=== PATIENT | female | born 1955 | race Caucasian/White ===

== ENCOUNTER 2016-04-15 13:42 | Emergency (ER) | payer MEDICARE, OTHER ==
[2016-04-15] MEDS ORDERED: ALBUTEROL/IPRATROPIUM 2.5/0.5 MG 3 ML/EACH DOSE ONE (14:45)
[2016-04-15] MEDS ORDERED: ASPIRIN CHEWTAB 81 MG TABLET ONE ×2 (14:55→15:04)
[2016-04-15] MEDS ORDERED: DEXAMETHASONE SOD PHOS 10 MG/1 ML VIAL ONE (14:55)
[2016-04-15] MEDS ORDERED: FUROSEMIDE 40 MG/4 ML VIAL ONE ×2 (14:56→14:57)
[2016-04-15 15:16] LABS: ABSOLUTE NEUTROPHIL COUNT 11.1 K/mm3 (1.8-7.7); BASO # 0.1 K/mm3 (0.0-0.2); BASO % 0.4 % (0.2-1.0); EOS # 0.1 (0.0-0.5); EOS % 0.4 % (0.9-2.9); HEMATOCRIT 43.5 % (37.0-47.0); HEMOGLOBIN 12.9 gm/l (12.0-16.0); IMM NEUT # 0.1 K/mm3 (0-0.2); IMM NEUT% 0.6 % (0-1); LYMPH % 7.9 % (15-45); MEAN CELL VOLUME 88.8 fl (81.0-99.0); MEAN CORPUSCULAR HEMOGLOBIN 26.3 pg (27.0-31.0); MEAN CORPUSCULAR HGB CONC 29.7 g/dl (33.0-37.0); MEAN PLATELET VOLUME 11.2 fl (7.4-10.4); MONO # 0.2 (0.0-0.8); MONO % 1.9 % (4-12); NEUT % 88.8 % (43-75); PLATELET COUNT 250 K/mm3 (130-400); RED CELL DISTRIBUTION WIDTH 15.8 % (11.5-14.5)
[2016-04-15 15:34] LABS: URINE BILIRUBIN NEGATIVE (NEGATIVE); URINE BLOOD NEGATIVE (NEGATIVE); URINE GLUCOSE (UA) 3+ (NEGATIVE); URINE LEUKOCYTE ESTERASE NEGATIVE (NEGATIVE); URINE NITRITE NEGATIVE (NEGATIVE); URINE PROTEIN NEGATIVE (NEGATIVE); URINE UROBILINOGEN NORMAL (0-1 mg/dl)
[2016-04-15 15:35] LABS: ALB/GLOB RATIO 1.2 (>1.0); ALBUMIN 3.8 gm/dL (3.5-5.7); CALCIUM 9.6 mg/dL (8.6-10.3); MAGNESIUM 1.6 mg/dL (1.9-2.7)
[2016-04-15 15:37] LABS: URINE APPEARANCE CLEAR; URINE COLOR YELLOW
[2016-04-15 15:46] LABS: TROPONIN I < 0.01 ng/ml (0.0-0.06)
[2016-04-15 15:50] LABS: CKMB ISOENZYME 4.1 ng/ml (0.6-6.3)
--- NOTE | 2016-04-15 15:51 | RAD ---
CHEST - 2 VIEWS COMPARISON: Chest 2 views, 01/13/2016 HISTORY: Shortness of breath for 2 weeks. White blood cell count elevated 12.5. Past history of chronic obstructive pulmonary disease. FINDINGS: Views: Frontal and lateral chest Lungs: Mildly diffusely enlarged interstitial markings. Heart and vessels: Normal heart and vessel size. Elongated thoracic ureter. Trachea and bronchi: Normal Mediastinum and renee: Normal Costophrenic sulci: Normal Chest wall and bones: Osteophytes throughout the thoracic spine and lumbar spine. Upper abdomen: Normal. IMPRESSION: Atypical interstitial pneumonia/pneumonitis a pattern similar to prior chest x-ray and CT of the chest.
[2016-04-15] MEDS ORDERED: AMOX 875 MG/CLAV 125 MG 1 EACH TABLET ONE (16:32)
[2016-04-15] MEDS ORDERED: DOXYCYCLINE HYCLATE 100 MG TABLET ONE (16:32)
== END 2016-04-15 17:41 | disposition home or self-care (01) ==
LOC: ED 13:42
DX: J18.9 Pneumonia, unspecified organism (principal); J44.9 Chronic obstructive pulmonary disease, unspecified; I50.9 Heart failure, unspecified; E11.9 Type 2 diabetes mellitus without complications; Z79.4 Long term (current) use of insulin; Z87.891 Personal history of nicotine dependence
CPT/HCPCS: 83690; 83880; 85379; 85025; 82553; 80053; 83735; 81003; 84484; 71020; 87804; 94640; 99284 ×2; 96374; A9270 ×4; J1100; J1940 ×2

== ENCOUNTER 2016-04-26 16:40 | Inpatient (IN) | payer MEDICARE, OTHER ==
[2016-04-26 17:47] LABS: ABSOLUTE NEUTROPHIL COUNT 8.3 K/mm3 (1.8-7.7); BASO % 0.3 % (0.2-1.0); EOS # 0.2 (0.0-0.5); EOS % 1.7 % (0.9-2.9); HEMATOCRIT 41.8 % (37.0-47.0); HEMOGLOBIN 12.6 gm/l (12.0-16.0); IMM NEUT # 0.1 K/mm3 (0-0.2); IMM NEUT% 0.5 % (0-1); LYMPH # 1.9 (1.0-4.8); LYMPH % 16.6 % (15-45); MEAN CELL VOLUME 87.3 fl (81.0-99.0); MEAN CORPUSCULAR HEMOGLOBIN 26.3 pg (27.0-31.0); MEAN CORPUSCULAR HGB CONC 30.1 g/dl (33.0-37.0); MEAN PLATELET VOLUME 11.4 fl (7.4-10.4); MONO % 8.6 % (4-12); NEUT % 72.3 % (43-75); PLATELET COUNT 244 K/mm3 (130-400); RED CELL DISTRIBUTION WIDTH 16.6 % (11.5-14.5)
--- NOTE | 2016-04-26 18:03 | RAD ---
EXAMINATION : CHEST-AP BEDSIDE HISTORY: Shortness of breath. COMPARISONS: Prior exam dated 04/15/2016. FINDINGS: Cardiomediastinal silhouette is unaltered from prior study. There is very slight aortic ectasia. Lungs are clear. No gross effusion is identified. The osseous structures are within normal limits. IMPRESSION: Negative single view chest.
[2016-04-26 18:12] LABS: CKMB ISOENZYME 1.2 ng/ml (0.6-6.3); TROPONIN I 0.09 ng/ml (0.0-0.06)
[2016-04-26 18:14] LABS: I-STAT CREATININE 0.6 mg/dL (0.6-1.3)
[2016-04-26] MEDS ORDERED: ALBUTEROL/IPRATROPIUM 2.5/0.5 MG 3 ML/EACH DOSE ONE (18:20)
[2016-04-26] MEDS ORDERED: OXYCODONE HCL 5 MG TABLET PO PRN (21:24)
[2016-04-26] MEDS ORDERED: TRAMADOL HCL 50 MG TABLET PO PRN ×2 (21:25→22:02)
[2016-04-26] MEDS: INSULIN ASPART (DOSE) 100 UNITS/1 ML SUB-Q SCH (21:33)
[2016-04-26 21:39] LABS: ALB/GLOB RATIO 1.2 (>1.0); ALBUMIN 3.7 gm/dL (3.5-5.7); CALCIUM 9.3 mg/dL (8.6-10.3)
[2016-04-26] MEDS ORDERED: SODIUM CHLORIDE 0.9% 100 ML IV PRN (22:01)
[2016-04-26] MEDS ORDERED: BISACODYL 10 MG SUP PR PRN (22:01)
[2016-04-26] MEDS ORDERED: BISACODYL 5 MG TABLET.EC PO PRN (22:01)
[2016-04-26] MEDS ORDERED: ACETAMINOPHEN 325 MG TABLET PO PRN (22:01)
[2016-04-26] MEDS ORDERED: MAGNESIUM HYDROXIDE 30 ML UDCUP PO PRN (22:01)
[2016-04-26] MEDS ORDERED: BLISTEX LIPSTICK 1 EACH TP PRN (22:01)
[2016-04-26] MEDS ORDERED: MENTHOL/CETYLPYRD 1 EACH LOZENGE PO PRN (22:01)
[2016-04-26] MEDS ORDERED: MELATONIN 3 MG TABLET PO PRN (22:45)
[2016-04-26] MEDS ORDERED: PREDNISONE 20 MG TABLET PO ONE (22:45)
[2016-04-26] MEDS ORDERED: CEFTRIAXONE 2 GRAM DUPLEX 50 ML IV SCH (22:45)
[2016-04-26] MEDS: OXYCODONE HCL 5 MG TABLET PO SCH (23:30)
[2016-04-26] MEDS: TRAMADOL HCL 50 MG TABLET PO SCH (23:31)
[2016-04-26] MEDS ORDERED: INSULIN GLARGINE (DOSE) 100 UNITS/ML UNIT ONE (23:48)
[2016-04-26] MEDS ORDERED: CARBIDOPA/LEVODOPA 25/100 1 EACH TABLET ONE (23:50)
[2016-04-26] MEDS ORDERED: GABAPENTIN 100 MG CAPSULE ONE (23:51)
[2016-04-26] MEDS ORDERED: GEMFIBROZIL 600 MG TABLET ONE (23:51)
[2016-04-26] MEDS ORDERED: LORAZEPAM 1 MG TABLET ONE (23:52)
[2016-04-26] MEDS: ALBUTEROL/IPRATROPIUM 2.5/0.5 MG 3 ML/EACH DOSE NEB SCH (23:56)
[2016-04-26] MEDS ORDERED: PUMP TUBING ONE (23:56)
[2016-04-26] MEDS: ALBUTEROL NEB 2.5 MG/3 ML VIAL.NEB NEB PRN (23:56)
[2016-04-27] MEDS: CEFTRIAXONE 2 GRAM DUPLEX 50 ML IV SCH ×2 (00:04→23:22)
[2016-04-27] MEDS: ENOXAPARIN SODIUM 40 MG/0.4 ML SYRINGE SUB-Q SCH ×2 (00:05→23:21)
[2016-04-27] MEDS: INSULIN GLARGINE (DOSE) 100 UNITS/ML UNIT SUB-Q SCH ×3 (00:05→21:32)
[2016-04-27] MEDS: CARBIDOPA/LEVODOPA 25/100 1 EACH TABLET PO SCH ×2 (00:08→23:22)
[2016-04-27] MEDS: LORAZEPAM 0.5 MG TABLET PO SCH ×2 (00:08→21:32)
[2016-04-27 00:39] LABS: THYROID STIMULATING HORMONE 0.98 uIU/ml (0.34-5.60)
[2016-04-27 00:46] LABS: FREE T4 0.88 ng/dL (0.58-1.64)
[2016-04-27 01:31] VITALS: BMI 47.4
[2016-04-27] MEDS: ALBUTEROL NEB 2.5 MG/3 ML VIAL.NEB NEB PRN ×2 (05:21→23:39)
[2016-04-27] MEDS: OXYCODONE HCL 5 MG TABLET PO SCH ×4 (05:25→23:21)
[2016-04-27] MEDS: TRAMADOL HCL 50 MG TABLET PO SCH ×4 (05:25→23:21)
[2016-04-27 05:57] LABS: ABSOLUTE NEUTROPHIL COUNT 8.5 K/mm3 (1.8-7.7); BASO % 0.4 % (0.2-1.0); EOS # 0.1 (0.0-0.5); EOS % 0.7 % (0.9-2.9); HEMATOCRIT 40.4 % (37.0-47.0); HEMOGLOBIN 12.1 gm/l (12.0-16.0); IMM NEUT # 0.1 K/mm3 (0-0.2); IMM NEUT% 0.6 % (0-1); LYMPH # 1.5 (1.0-4.8); LYMPH % 13.7 % (15-45); MEAN CELL VOLUME 88.8 fl (81.0-99.0); MEAN CORPUSCULAR HEMOGLOBIN 26.6 pg (27.0-31.0); MEAN PLATELET VOLUME 10.8 fl (7.4-10.4); MONO # 0.5 (0.0-0.8); MONO % 4.8 % (4-12); NEUT % 79.8 % (43-75); PLATELET COUNT 218 K/mm3 (130-400); RED CELL DISTRIBUTION WIDTH 16.7 % (11.5-14.5)
[2016-04-27 06:17] LABS: ALB/GLOB RATIO 1.3 (>1.0); ALBUMIN 3.7 gm/dL (3.5-5.7); CALCIUM 9.1 mg/dL (8.6-10.3); MAGNESIUM 1.9 mg/dL (1.9-2.7)
--- NOTE | 2016-04-27 06:34 | CT ---
CHEST W/O CON COMPARISON: Portable chest x-ray 04/26/2016 HISTORY: Shortness of breath Technique: The thorax was imaged with a [employer] [place] [employer] [address] scanner. No intravenous contrast. An automated dose reduction technique was used to minimize patient radiation dose. Dose information: CTDIvol (mGy): 28.50 DLP(mGycm): 1137.10 FINDINGS: Lungs: Scattered bilateral subpleural groundglass opacities in the mid to lower lungs. Heart and vessels: No cardiomegaly or pulmonary vascular congestion. Coronary artery calcification. Aortic annular calcification. Scattered atherosclerotic calcified plaques of the aorta. The azygos and hemiazygos veins are mildly dilated. Trachea and bronchi: Normal. Mediastinum and renee: Normal. Pleura and pericardium: Normal. Chest wall: Normal. Bones: Normal. Upper abdomen: Normal. IMPRESSION: 1. Nonspecific finding of scattered mid to lower lung subpleural groundglass opacities which is evidence of acute alveolar disease such as hypersensitivity pneumonitis or adult respiratory distress syndrome, favored over upper to distant infection or chronic interstitial disease. No large areas of consolidation or infiltrate. 2. Incidentally noted atherosclerosis of the aorta and the coronary arteries, along with minimal mitral annular calcification. Preliminary report by [facility] radiologist Kristy Roa MD 04/26/2016 at 23:29
--- NOTE | 2016-04-27 07:12 | HP ---
Celeste Yip [id number] DATE OF ADMISSION: 04/27/2016 CHIEF COMPLAINT: Dyspnea and borderline elevated troponin. HISTORY OF PRESENT ILLNESS: The patient is a 60-year-old female who has been recently treated for possible walking pneumonia and had received antibiotic therapy and prednisone from the emergency department. Treated with Augmentin and doxycycline as she had already been on azithromycin proceeding this. She had a normal D-dimer and was discharged to home with some steroids as well. Today was her last day for her steroids and antibiotics, but she noticed some increase in chest pain, heart racing and fluttering with some elevated blood pressures noted up to 202/143 on her home monitor. She felt lightheaded and felt like she was passing out and had an incoherent feeling. Going outside to the cool air helped, but had to go back in the house to urinate. She has noticed fevers, but notes this pain seems to be worsened with activity, decreased with rest, and being in the cool air, and she notes that she was feeling quite anxious, so came to the emergency room. In the emergency room, she was noted to have a borderline elevated troponin at 0.09 and so hospitalist service was asked to observe. PAST MEDICAL HISTORY: Chronic obstructive pulmonary disease and she is on oxygen at 2 liters since last year. She had previously been on it at night, but the last three weeks has been on it continuously. 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 She has a history of a rotator cuff tear. PAST SURGICAL HISTORY: Includes bilateral carpal tunnel surgery, appendectomy, tonsillectomy, adenoidectomy, ectopic , L4-L5 Staph infection, and a left benign lumpectomy. ALLERGIES: She has no known drug allergies. MEDICATIONS: Taken by the nurse and reviewed with her show: 1. Albuterol sulfate neb every 2 hours as needed. 2. ProAir 2 puffs inhaled every 4 hours as needed. 3. DuoNeb 3 mL neb twice daily. 4. Aspirin 81 mg daily. 5. Sentiment 25/100 one by mouth at bedtime. 6. Citalopram 20 mg by mouth daily. 7. Furosemide 40 mg by mouth twice daily. 8. Gabapentin 800 mg by mouth twice daily. 9. NovoLog 35 units subcutaneously three times daily with meals. 10. Lantus 55 units subcutaneously twice daily. 11. Lisinopril 40 mg by mouth daily. 12. Lorazepam 0.5 to 1 mg by mouth at bedtime. 13. Melatonin 5 mg at bedtime. 14. Meloxicam 15 mg by mouth daily. 15. Metformin 850 mg by mouth three times daily. 16. Omeprazole 20 mg by mouth daily. 17. Oxycodone 10 mg by mouth every 6 hours. 18. Potassium chloride 20 mEq by mouth twice daily. 19. Simvastatin 40 mg by mouth daily. 20. Tramadol 50 mg by mouth every 6 hours. SOCIAL HISTORY: She is for 10 years. Disabled since 2014. She lives in [place] in an apartment. 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 Has two kids, one In [place] and one in [place]. No particular buddhist affiliation. Hobbies include gardening, puzzles, sewing, and barbeque. FAMILY HISTORY: Father is 86 with diabetes. Mom is 81 with chronic obstructive pulmonary disease. REVIEW OF SYSTEMS: Eyes have been okay. Ears okay although, plugged and she has to pop them frequently. Nose is okay. Mouth is okay. Teeth she reports not well and needs a dentist. Neck is okay. Lungs: A little bit of clear sputum since being on the antibiotics. Activity tolerance is very limited only able to take a couple of steps. She last could walk down the thomas about 2-1/2 years ago. She notes some palpations, but no sustained dysrhythmia's. She notes some breast discomfort and pain. Had a mammogram showing a area on the left breast that they are observing, but otherwise has been okay. She notes some generalized discomfort otherwise, but this is not a change. No urinary complaints. She was evaluated for sleep apnea, but testing was negative. She has had some leg swelling. She is not particularly orthopneic, but nose gets plugged when she lies down. No history of stroke. Mood is not bad. She did report she missed her Lasix this morning. Code status: She would accept resuscitation. PHYSICAL EXAMINATION: GENERAL: Nontoxic, but slightly dyspneic obese female. VITAL SIGNS: Blood pressure 147/82, temperature 98.4, pulse 105, 91% saturation on 2 liters, 24 respirations. HEENT: Head is normocephalic, atraumatic. Eyes are unremarkable. Ears: Tympanic membranes are grossly normal with some cerumen evident bilaterally. Nose is normal. Oropharynx: Dentition is fair. Posterior pharynx is unremarkable without erythema or other changes. NECK: With some fullness along the anterior neck although, habitus makes this hard to assess if this is thyromegaly or other change. Jugular venous distention is not evident. LUNGS: Have poor air movement with significant wheezing bilaterally. HEART: Regular rate and rhythm with systolic murmur noted over the pericardium and right upper sternal border. ABDOMEN: Obese, nontender, nondistended. Bowel sounds are normal. EXTREMITIES: Lower extremity with 1 to 2+ pitting edema across the ankles. Some slight duskiness to the feet bilaterally. No ulcerations are noted. Onychomycosis is noted of the feet. NEUROLOGIC: Cranial nerves are intact. Speech is appropriate. She has labs showing a white count of 11.5, hemoglobin 12.6, platelets 244. Sodium 137, potassium 4.5, chloride 96, CO2 27, BUN 16, creatinine 0.6, glucose 296, calcium 9.3. LFT's are normal. Troponin 0.09, CK-MB 1.2 and repeat is 3.8, BNP less than 5. Albumin 3.7, globulin 3.1. DIAGNOSTICS: Chest x-ray negative single view of chest. Previous echo November 2015 shows ejection fraction of 70% to 75%, mild calcific stenosis, mild concentric left ventricular hypertrophy. ASSESSMENT AND PLAN: 1. Exacerbation of chronic obstructive pulmonary disease suggested by exam. We will check CT as this previously suggested some possible non-cardiogenic pulmonary edema. With recent antibiotics and prednisone this may obscure pictures. Her influenza testing was negative on and her D-dimer was normal on the . We will check cardiac enzymes, plan nebulizer, oxygen, prednisone, and Rocephin for chronic obstructive pulmonary disease exacerbation. I appreciate respiratory therapy input as well and we will be checking peak flows and consider for arterial blood gas if persisting difficulties. 2. Reported palpitations. BNP was normal. Troponin 0.09. We will recheck troponin and consider rechecking echocardiogram if there is a significant change. We will be checking magnesium, TSH, free T2. 3. Morbid obesity. Body mass index is not available at this time, but her habitus likely significantly impacts her respirations. 4. Diabetes mellitus type 2. Plan to continue long acting insulin along with her regular insulin plus a sliding scale and doing arterial blood gases. 5. History of hepatitis C reported in remission. Liver function tests are normal at this time. 6. Regular opioid use for chronic pain. We will plan to continue. 7. Gastroesophageal reflux disease. Anticipate use of proton pump inhibitor. 8. Edema of lower extremities, suspect due to positioning. Her D-dimer was negative 04/15/2016. 9. Venous thrombosis prophylaxis. Anticipate us of enoxaparin. JOB: [id number] CC: Dr. Delores Damon Pulmonary
[2016-04-27 07:44] LABS: SPECIFIC GRAVITY 1.015 (1.001-1.030); URINE BILIRUBIN NEGATIVE (NEGATIVE); URINE BLOOD NEGATIVE (NEGATIVE); URINE GLUCOSE (UA) 2+ (NEGATIVE); URINE LEUKOCYTE ESTERASE NEGATIVE (NEGATIVE); URINE NITRITE NEGATIVE (NEGATIVE); URINE PROTEIN NEGATIVE (NEGATIVE); URINE UROBILINOGEN NORMAL (0-1 mg/dl)
[2016-04-27] MEDS: INSULIN ASPART (DOSE) 100 UNITS/1 ML SUB-Q SCH ×4 (07:44→18:13)
[2016-04-27] MEDS: INSULIN ASPART (DOSE) 100 UNITS/1 ML SUB-Q PRN ×3 (07:46→18:13)
[2016-04-27 07:47] LABS: URINE APPEARANCE CLEAR; URINE COLOR YELLOW
[2016-04-27] MEDS: ALBUTEROL/IPRATROPIUM 2.5/0.5 MG 3 ML/EACH DOSE NEB SCH ×4 (08:08→20:21)
[2016-04-27] MEDS ORDERED: INSULIN ASPART (DOSE) 100 UNITS/1 ML SUB-Q SCH (09:00)
[2016-04-27] MEDS: DOCUSATE SODIUM 100 MG CAPSULE PO SCH ×2 (09:50→21:31)
[2016-04-27] MEDS: PREDNISONE 20 MG TABLET PO SCH (09:51)
[2016-04-27] MEDS: PANTOPRAZOLE 40 MG TABLET DR PO SCH (09:51)
[2016-04-27] MEDS: ASPIRIN (ENTERIC COATED) 81 MG TABLET.EC PO SCH (09:51)
[2016-04-27] MEDS: CITALOPRAM HYDROBROMIDE 20 MG TABLET PO SCH (09:51)
[2016-04-27] MEDS: GABAPENTIN 800 MG TABLET PO SCH ×3 (09:51→21:31)
[2016-04-27] MEDS: POTASSIUM CHLORIDE 20 MEQ TAB.PRT.SR PO SCH ×2 (09:52→21:31)
[2016-04-27] MEDS: FUROSEMIDE 40 MG TABLET PO SCH ×2 (09:52→16:08)
[2016-04-27] MEDS: POLYETHYLENE GLYCOL 3350 17 G POWD.SUSP PO SCH (09:56)
--- NOTE | 2016-04-27 13:36 | PDOC43 ---
- Subjective Chief Complaint: exac COPD Patient reports feeling better today. Walked some in the halls, which is quite an improvement. Notes some cramps in feet, but otherwise doing ok. Breathing much improved today. - Objective Vital Signs Temperature 98.0 F 04/27/16 11:53 Pulse Rate 74 04/27/16 11:53 Respiratory Rate 20 04/27/16 11:53 Blood Pressure 120/66 04/27/16 11:53 O2 Saturation by Pulse Oximetry 92 04/27/16 11:53 Oxygen Delivery Method Nasal Cannula Oxygen Flow Rate 2 Vital Signs Last 12 Hours Temp Pulse Resp BP Pulse Ox 04/27/16 11:53 98.0 F 74 20 120/66 92 04/27/16 08:08 94 24 91 04/27/16 08:00 98.0 F 90 20 134/60 86 04/27/16 07:30 24 04/27/16 05:21 72 22 92 04/27/16 04:59 98.0 F 87 20 148/89 91 04/27/16 02:00 22 Intake and Output 04/25/16 04/26/16 04/27/16 23:59 23:59 23:59 Intake Total 794 Output Total 1800 Balance -1006 General: Alert, Cooperative, No Acute Distress HEENT: Atraumatic Lungs: Diminished at Bases, Other (wheezes noted today, but air movement considerably better than on admit.) Cardiovascular: Regular Rate and Rhythm Abdomen: Soft, Normal Bowel Sounds, Non-Distended Extremities: Edema (trace LE) Skin: Normal Color (color improved today.) Neurological: Normal Speech, Other (wiggles feet some) Psych/Mental Status: Normal Affect (affect at ease, improved.) Laboratory 04/27/16 05:30 04/27/16 05:30 04/27/16 04/27/16 04/27/16 11:52 07:34 05:30 MCH 26.6 L MCHC 30.0 L RDW 16.7 H POC Capillary Glucose 281 H 321 H 04/27/16 00:09 MCH MCHC RDW POC Capillary Glucose 162 H Current Medications: Current meds reviewed in EMR. Active Medications Acetaminophen (Tylenol) 650 mg PO Q6H PRN PRN Reason: Pain or Temperature > 100.5 F Albuterol Sulfate (Ventolin Inhalation Solution (Dose)) 2.5 mg NEB Q2H PRN PRN Reason: Wheezing Last Admin: 04/27/16 05:21 Dose: 2.5 mg Albuterol/Ipratropium (Duoneb) 3 ml NEB 08,12,16,20 [facility] Last Admin: 04/27/16 12:28 Dose: 3 ml Aspirin (Ecotrin) 81 mg PO DAILY [facility] Last Admin: 04/27/16 09:51 Dose: 81 mg Benzocaine/Menthol (Cepacol) 1 each PO PRN PRN PRN Reason: Sore Throat Bisacodyl (Dulcolax) 10 mg SD DAILY PRN PRN Reason: Constipation Bisacodyl (Dulcolax) 5 mg PO DAILY PRN PRN Reason: Constipation Carbidopa/Levodopa (Sinemet 25/100) 1 each PO BEDTIME [facility] Last Admin: 04/27/16 00:08 Dose: 1 each Citalopram Hydrobromide (Celexa) 20 mg PO DAILY [facility] Last Admin: 04/27/16 09:51 Dose: 20 mg Docusate Sodium (Colace) 100 mg PO BID [facility] Last Admin: 04/27/16 09:50 Dose: Not Given Enoxaparin Sodium (Lovenox) 40 mg SUB-Q Q24H [facility] Last Admin: 04/27/16 00:05 Dose: 40 mg Furosemide (Lasix) 40 mg PO 09,16 [facility] Last Admin: 04/27/16 09:52 Dose: 40 mg Gabapentin (Neurontin) 800 mg PO TID [facility] Last Admin: 04/27/16 09:51 Dose: 800 mg Sodium Chloride (Sodium Chloride 0.9%) 100 mls @ 25 mls/hr IV PRN PRN PRN Reason: Flush Ceftriaxone Sodium/Dextrose (Rocephin 2 Gram Premix) 50 mls @ 200 mls/hr IV Q24H [facility] Last Admin: 04/27/16 00:04 Dose: 200 mls/hr Insulin Aspart (Novolog (Dose)) 35 units SUB-Q TIDWM [facility] Last Admin: 04/27/16 12:05 Dose: 35 units Insulin Aspart (Novolog (Dose)) 0 units SUB-Q WM/BEDTIME PRN; Protocol PRN Reason: Blood Sugar > Last Admin: 04/27/16 12:05 Dose: 12 units Insulin Glargine (Lantus (Dose)) 55 units SUB-Q BID [facility] Last Admin: 04/27/16 09:52 Dose: 55 units Lorazepam (Ativan) 0.5 - 1 mg PO BEDTIME [facility] Last Admin: 04/27/16 00:08 Dose: 1 mg Magnesium Hydroxide (Milk Of Magnesia) 30 ml PO DAILY PRN PRN Reason: Constipation Melatonin (Melatonin) 4.5 mg PO BEDTIME PRN PRN Reason: Insomnia Oxycodone HCl (Roxicodone) 10 mg PO Q6H PRN PRN Reason: Pain Last Admin: 04/26/16 21:33 Dose: 10 mg Oxycodone HCl (Roxicodone) 10 mg PO Q6H [facility] Last Admin: 04/27/16 12:04 Dose: 10 mg Pantoprazole Sodium (Protonix) 40 mg PO DAILY [facility] Last Admin: 04/27/16 09:51 Dose: 40 mg Petrolatum/Paraffin/Mineral Oil (Blistex) 1 each TP PRN PRN PRN Reason: Dry and/or chapped lips Polyethylene Glycol/Electrolytes (Miralax) 17 g PO DAILY [facility] Last Admin: 04/27/16 09:56 Dose: Not Given Potassium Chloride (K-Dur) 20 meq PO BID [facility] Last Admin: 04/27/16 09:52 Dose: 20 meq Prednisone (Prednisone) 20 mg PO QAM [facility] Last Admin: 04/27/16 09:51 Dose: 20 mg Sodium Chloride (Normal Saline 10ml Flush) 10 - 50 ml IV PRN PRN PRN Reason: IV Flush Sodium Chloride (Normal Saline 10ml Flush) 10 ml IV Q8HR [facility] Last Admin: 04/27/16 09:56 Dose: 10 ml Tramadol HCl (Ultram) 50 mg PO Q6HR PRN PRN Reason: Pain Tramadol HCl (Ultram) 50 mg PO Q6H [facility] Last Admin: 04/27/16 12:04 Dose: 50 mg - Problems: Assessment/Plan (1) COPD exacerbation Status: Acute Assessment/Plan: with respiratory distress, on nebs, O2.; now with fairly good improvement With reduced peak flows - about 150 On prednisone, Rocephin, nebs. 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 Plan increased insulin while on steroids. (3) Chronic pain Qualifiers: Chronic pain type: chronic pain syndrome Qualifier Code: (G89.4) Chronic pain syndrome Status: Chronic Assessment/Plan: Continue meds. (4) RLS (restless legs syndrome) Status: Chronic Assessment/Plan: restless feet, cramping - will check Vit D and iron studies. VTE Prophylaxis: enoxaparin Disposition: Anticipate DC to home, possibly 04/28, if continues to improve
[2016-04-27] MEDS ORDERED: Magnesium Oxide 400 MG TABLET PO SCH (13:45)
[2016-04-27] MEDS: Magnesium Oxide 400 MG TABLET PO SCH ×2 (14:41→23:22)
[2016-04-27] MEDS ORDERED: INSULIN ASPART (DOSE) 100 UNITS/1 ML SUB-Q ONE (21:21)
[2016-04-28] MEDS: OXYCODONE HCL 5 MG TABLET PO SCH ×2 (05:32→12:04)
[2016-04-28] MEDS: TRAMADOL HCL 50 MG TABLET PO SCH ×2 (05:32→12:05)
[2016-04-28 06:15] LABS: IRON 28 ug/dL (50-212); TOTAL IRON BINDING CAPACITY 433 ug/dL (261-478); TRANSFERRIN 309 mg/dL (203-362)
[2016-04-28 06:19] LABS: ABSOLUTE NEUTROPHIL COUNT 7.1 K/mm3 (1.8-7.7); BASO % 0.3 % (0.2-1.0); EOS # 0.2 (0.0-0.5); EOS % 1.8 % (0.9-2.9); HEMATOCRIT 43.9 % (37.0-47.0); IMM NEUT # 0.1 K/mm3 (0-0.2); IMM NEUT% 0.5 % (0-1); LYMPH # 3.5 (1.0-4.8); LYMPH % 28.7 % (15-45); MEAN CELL VOLUME 89.4 fl (81.0-99.0); MEAN CORPUSCULAR HEMOGLOBIN 26.5 pg (27.0-31.0); MEAN CORPUSCULAR HGB CONC 29.6 g/dl (33.0-37.0); MEAN PLATELET VOLUME 11.2 fl (7.4-10.4); MONO # 1.1 (0.0-0.8); MONO % 9.3 % (4-12); NEUT % 59.4 % (43-75); PLATELET COUNT 222 K/mm3 (130-400); RED CELL DISTRIBUTION WIDTH 16.9 % (11.5-14.5)
[2016-04-28 06:31] LABS: ALB/GLOB RATIO 1.2 (>1.0); ALBUMIN 3.9 gm/dL (3.5-5.7); CALCIUM 9.7 mg/dL (8.6-10.3)
[2016-04-28] MEDS: INSULIN ASPART (DOSE) 100 UNITS/1 ML SUB-Q SCH ×4 (07:23→12:05)
[2016-04-28] MEDS: INSULIN ASPART (DOSE) 100 UNITS/1 ML SUB-Q PRN ×2 (07:24→10:48)
[2016-04-28] MEDS: INSULIN GLARGINE (DOSE) 100 UNITS/ML UNIT SUB-Q SCH (08:48)
[2016-04-28] MEDS: POLYETHYLENE GLYCOL 3350 17 G POWD.SUSP PO SCH (08:49)
[2016-04-28] MEDS: FUROSEMIDE 40 MG TABLET PO SCH (08:49)
[2016-04-28] MEDS: GABAPENTIN 800 MG TABLET PO SCH ×2 (08:49→15:39)
[2016-04-28] MEDS: DOCUSATE SODIUM 100 MG CAPSULE PO SCH (08:49)
[2016-04-28] MEDS: PREDNISONE 20 MG TABLET PO SCH (08:50)
[2016-04-28] MEDS: CITALOPRAM HYDROBROMIDE 20 MG TABLET PO SCH (08:50)
[2016-04-28] MEDS: PANTOPRAZOLE 40 MG TABLET DR PO SCH (08:50)
[2016-04-28] MEDS: ASPIRIN (ENTERIC COATED) 81 MG TABLET.EC PO SCH (08:50)
[2016-04-28] MEDS: POTASSIUM CHLORIDE 20 MEQ TAB.PRT.SR PO SCH (08:58)
[2016-04-28] MEDS: ALBUTEROL/IPRATROPIUM 2.5/0.5 MG 3 ML/EACH DOSE NEB SCH ×2 (09:07→12:14)
[2016-04-28] MEDS: Magnesium Oxide 400 MG TABLET PO SCH (10:35)
[2016-04-28 13:28] VITALS: BP 154/89
[2016-04-28] MEDS ORDERED: CHOLECALCIFEROL 5000 UNIT PO SCH (14:00)
--- NOTE | 2016-04-28 14:05 | PDOC43 ---
- Subjective Chief Complaint: exac COPD Patient reports feeling much better and is eager to go home. Did have an elevated glucose this am, now improved. No new c/o, just the ongoing foot cramping noted. - Objective Vital Signs Temperature 98.0 F 04/28/16 12:45 Pulse Rate 104 04/28/16 12:45 Respiratory Rate 18 04/28/16 12:45 Blood Pressure 154/89 04/28/16 12:45 O2 Saturation by Pulse Oximetry 94 04/28/16 12:45 Oxygen Delivery Method Nasal Cannula Oxygen Flow Rate 2 Vital Signs Last 12 Hours Temp Pulse Resp BP Pulse Ox 04/28/16 12:45 98.0 F 104 18 154/89 94 04/28/16 12:14 47 18 94 04/28/16 09:09 96 18 95 04/28/16 09:00 97 137/82 92 04/28/16 08:00 18 04/28/16 07:14 98.0 F 77 18 152/83 91 04/28/16 03:25 98.0 F 93 18 139/81 98 04/28/16 02:00 26 Intake and Output 04/26/16 04/27/16 04/28/16 23:59 23:59 23:59 Intake Total 2914 400 Output Total 4700 1325 Balance -1786 -925 General: Alert, Cooperative, No Acute Distress (appears to be feeling much better.) HEENT: Atraumatic Lungs: Other (fair air movement bilat (but considerably improved)) Cardiovascular: Regular Rate and Rhythm Abdomen: Soft, Non-Distended Extremities: Edema (trace -- improved) Neurological: Normal Speech (much improved.) Psych/Mental Status: Normal Affect, Normal Mood (appears to be feeling much better) Laboratory 04/28/16 05:30 04/28/16 05:30 04/28/16 04/28/16 04/28/16 12:03 10:36 07:04 MCH MCHC RDW POC Capillary Glucose 174 H 524 H* 173 H Iron Transferrin % Sat Ferritin 04/28/16 04/27/16 04/27/16 05:30 21:14 17:49 MCH 26.5 L MCHC 29.6 L RDW 16.9 H POC Capillary Glucose 404 H 245 H Iron Transferrin % Sat Ferritin 04/27/16 05:30 MCH MCHC RDW POC Capillary Glucose Iron 28 L Transferrin % Sat 6 L Ferritin 10.4 L Current Medications: Current meds reviewed in EMR. Active Medications Acetaminophen (Tylenol) 650 mg PO Q6H PRN PRN Reason: Pain or Temperature > 100.5 F Albuterol Sulfate (Ventolin Inhalation Solution (Dose)) 2.5 mg NEB Q2H PRN PRN Reason: Wheezing Last Admin: 04/27/16 23:39 Dose: 2.5 mg Albuterol/Ipratropium (Duoneb) 3 ml NEB 08,12,16,20 [facility] Last Admin: 04/28/16 12:14 Dose: 3 ml Aspirin (Ecotrin) 81 mg PO DAILY [facility] Last Admin: 04/28/16 08:50 Dose: 81 mg Benzocaine/Menthol (Cepacol) 1 each PO PRN PRN PRN Reason: Sore Throat Bisacodyl (Dulcolax) 10 mg NE DAILY PRN PRN Reason: Constipation Bisacodyl (Dulcolax) 5 mg PO DAILY PRN PRN Reason: Constipation Carbidopa/Levodopa (Sinemet 25/100) 1 each PO BEDTIME [facility] Last Admin: 04/27/16 23:22 Dose: 1 each Citalopram Hydrobromide (Celexa) 20 mg PO DAILY [facility] Last Admin: 04/28/16 08:50 Dose: 20 mg Docusate Sodium (Colace) 100 mg PO BID [facility] Last Admin: 04/28/16 08:49 Dose: 100 mg Enoxaparin Sodium (Lovenox) 40 mg SUB-Q Q24H [facility] Last Admin: 04/27/16 23:21 Dose: 40 mg Furosemide (Lasix) 40 mg PO 09,16 [facility] Last Admin: 04/28/16 08:49 Dose: 40 mg Gabapentin (Neurontin) 800 mg PO TID [facility] Last Admin: 04/28/16 08:49 Dose: 800 mg Sodium Chloride (Sodium Chloride 0.9%) 100 mls @ 25 mls/hr IV PRN PRN PRN Reason: Flush Ceftriaxone Sodium/Dextrose (Rocephin 2 Gram Premix) 50 mls @ 200 mls/hr IV Q24H [facility] Last Admin: 04/27/16 23:22 Dose: 200 mls/hr Insulin Aspart (Novolog (Dose)) 35 units SUB-Q TIDWM [facility] Last Admin: 04/28/16 12:05 Dose: Not Given Insulin Aspart (Novolog (Dose)) 0 units SUB-Q WM/BEDTIME PRN; Protocol PRN Reason: Blood Sugar > Last Admin: 04/28/16 10:48 Dose: 20 units Insulin Glargine (Lantus (Dose)) 70 units SUB-Q BID [facility] Last Admin: 04/28/16 08:48 Dose: 70 units Lorazepam (Ativan) 0.5 - 1 mg PO BEDTIME [facility] Last Admin: 04/27/16 21:32 Dose: 1 mg Magnesium Hydroxide (Milk Of Magnesia) 30 ml PO DAILY PRN PRN Reason: Constipation Magnesium Oxide (Magnesium Oxide) 400 mg PO BID@1000,2300 [facility] Last Admin: 04/28/16 10:35 Dose: 400 mg Melatonin (Melatonin) 4.5 mg PO BEDTIME PRN PRN Reason: Insomnia Oxycodone HCl (Roxicodone) 10 mg PO Q6H PRN PRN Reason: Pain Last Admin: 04/26/16 21:33 Dose: 10 mg Oxycodone HCl (Roxicodone) 10 mg PO Q6H [facility] Last Admin: 04/28/16 12:04 Dose: 10 mg Pantoprazole Sodium (Protonix) 40 mg PO DAILY [facility] Last Admin: 04/28/16 08:50 Dose: 40 mg Petrolatum/Paraffin/Mineral Oil (Blistex) 1 each TP PRN PRN PRN Reason: Dry and/or chapped lips Polyethylene Glycol/Electrolytes (Miralax) 17 g PO DAILY [facility] Last Admin: 04/28/16 08:49 Dose: Not Given Potassium Chloride (K-Dur) 20 meq PO BID [facility] Last Admin: 04/28/16 08:58 Dose: 20 meq Prednisone (Prednisone) 20 mg PO QAM [facility] Last Admin: 04/28/16 08:50 Dose: 20 mg Sodium Chloride (Normal Saline 10ml Flush) 10 - 50 ml IV PRN PRN PRN Reason: IV Flush Sodium Chloride (Normal Saline 10ml Flush) 10 ml IV Q8HR [facility] Last Admin: 04/28/16 08:50 Dose: 10 ml Tramadol HCl (Ultram) 50 mg PO Q6HR PRN PRN Reason: Pain Tramadol HCl (Ultram) 50 mg PO Q6H [facility] Last Admin: 04/28/16 12:05 Dose: 50 mg - Problems: Assessment/Plan (1) COPD exacerbation Status: Acute Assessment/Plan: with respiratory distress, on nebs, O2.; now with good improvement , eager to go home. On prednisone, Rocephin, nebs, anticipate switching to all PO. 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 Plan to revise tx somewhat in anticipate for DC on prednisone taper (3) Chronic pain Qualifiers: Chronic pain type: chronic pain syndrome Qualifier Code: (G89.4) Chronic pain syndrome Status: Chronic Assessment/Plan: Continue meds. (4) RLS (restless legs syndrome) Status: Chronic Assessment/Plan: restless feet, cramping - Vit D and iron studies both suggested deficiency - plan supplement. VTE Prophylaxis: enoxaparin Disposition: Anticipate DC to home
[2016-04-28] MEDS ORDERED: FERROUS SULFATE (65 Fe) 325 MG TABLET PO SCH (21:00)
--- NOTE | 2016-04-28 21:18 | DS ---
LORETTA MICHAEL [id number] DATE OF ADMISSION: 04/26/2016 DATE OF DISCHARGE: 04/28/2016 DISCHARGE DIAGNOSES: 1. Exacerbation of COPD. 2. Recent diagnosis of possible walking pneumonia. 3. Severe COPD. 4. Hypoxia, on oxygen chronically at two liters per minute. 5. Diabetes mellitus Type-2, with worsening associated with prednisone. 6. Neuropathy and nephropathy related to diabetes. 7. History of spinal stenosis. 8. History of hepatitis C, in remission after therapy. 9. History of morbid obesity. 10. History of restless legs, with newly diagnosed iron and vitamin D deficiency. 11. History of gastroesophageal reflux. 12. History of dyslipidemia. 13. History of rotator cuff tear. REASON FOR ADMISSION: The patient is a 60-year-old female who was recently treated for possible walking pneumonia and received Augmentin and doxycycline as well as azithromycin. She had had modest improvement and had been also on some prednisone, but had completed a course of prednisone when she noted worsening dyspnea with some chest pain, heart racing and fluttering, and elevated blood pressure. She felt lightheaded and felt like she might pass-out, so she came to the [facility] Emergency Department. In the ER she was noted to have a white count of 11.5, hemoglobin 12.6, MCV of 87.3, and platelets of 244. Her sodium was 137, potassium 4.5, BUN of 16, creatinine 0.6, glucose 296 and calcium 9.3. Liver enzymes are normal. Troponin 0.09. BNP was less than 5. Thyroid studies with a TSH of 0.98 and a free T4 of 0.88. CK-MB was 1.2. Urinalysis was negative, other than 2+ glucose. A chest x-ray was performed, which showed a negative single view chest. HOSPITAL COURSE: The patient was referred to the Hospitalist Service, particularly in regards to the borderline elevated troponin. She was pain-free on her visit here and appeared to be doing well, other than having significant respiratory distress and marked wheezing. She underwent a chest CT which showed nonspecific finding of scattered mid lower lung subpleural ground-glass opacities, evidence of acute alveolar disease which was hypersensitivity pneumonitis or adult respiratory distress syndrome favored over upper to distant infection or chronic interstitial disease. No large area of consolidation or infiltrate and incidentally noted atherosclerosis of the aorta and coronary arteries, along with mitral annular calcification to a minimal degree. The patient was started on Rocephin and prednisone and received regular DuoNeb treatments. Her peak flows were measured and were around 150, with only modest improvement initially, but over the next two days she demonstrated good improvement and had marked improvement in activity tolerance, able to walk down the thomas without difficulty. She remained on oxygen the whole time and maintained sats generally in the 90's, from 91 up to 98. She had complained of restless legs and a vitamin D level was obtained which showed a level of 15, consistent with deficiency, and she had iron studies which showed a transferrin saturation of 6%, a ferritin of 10.4, iron of 28, and an iron-binding capacity of 433, to go with her hemoglobin of 13 and an MCV of 89.4. By 04/28/2016 she was feeling much better and very eager for discharge. She was able to ambulate very well and indicated she had good help at home that could help her with activities and bathing. She did have some elevated blood sugars and her insulin was increased. She did have one elevated blood sugar of 524, had a modest correction, and later was 174 on 04/28/2016. DISCHARGE MEDICATIONS: Are anticipated to be: 1. Albuterol two puffs nebulizer every two hours as needed, but DuoNeb nebulizer regularly four times a day. 2. Albuterol HFA two puffs every four hours. 3. Aspirin 81 mg daily. 4. Sinemet 25/100 one by mouth at bedtime. 5. Ceftin 500 mg by mouth twice a day. 6. Vitamin D-3, 5,000 units by mouth daily. 7. Citalopram 20 mg by mouth daily. 8. Ferrous sulfate 325 mg by mouth twice a day. 9. Lasix 40 mg by mouth twice a day. 10. Gabapentin 800 mg by mouth three times a day. 11. Insulin aspartame 35 units subcutaneously three times a day with meals. 12. Lantus 70 units subcutaneously twice a day, which was increased. 13. Losartan 100 mg by mouth daily. 14. Ativan 0.5 -1 mg by mouth at bedtime. 15. Melatonin 5 mg by mouth at bedtime as needed. 16. Meloxicam 15 mg by mouth daily. 17. Metformin 850 mg by mouth three times a day. 18. Omeprazole 20 mg by mouth daily. 19. Oxycodone 10 mg by mouth every six hours. 20. Potassium chloride 20 mEq by mouth twice a day. 21. Prednisone 20 mg, tapering down to 2 1/2 mg over a thirty day period. She is advised that prednisone will raise her blood sugars. 22. Simvastatin 40 mg by mouth daily. 23. Tramadol 50 mg by mouth every six hours. DISCHARGE FOLLOW-UP: With Dr. Goodman. I believe she has an appointment on 04/29/2016. cc: Dr. Burt Goodman
== END 2016-04-28 15:44 | disposition home or self-care (01) | DRG 192 ==
LOC: ED 16:40 → MS 18:58 → OBSVTOIN 22:02
PROVIDERS: ADMIT Family Medicine; ATTEND Family Medicine
DX: J44.1 Chronic obstructive pulmonary disease with (acute) exacerbation (principal); I77.819 Aortic ectasia, unspecified site; I25.10 Atherosclerotic heart disease of native coronary artery without angina pectoris; E11.21 Type 2 diabetes mellitus with diabetic nephropathy; E11.40 Type 2 diabetes mellitus with diabetic neuropathy, unspecified; B19.20 Unspecified viral hepatitis C without hepatic coma; E66.01 Morbid (severe) obesity due to excess calories; G25.81 Restless legs syndrome; K21.9 Gastro-esophageal reflux disease without esophagitis; E78.5 Hyperlipidemia, unspecified; R00.2 Palpitations; Z79.4 Long term (current) use of insulin; R60.9 Edema, unspecified; R09.02 Hypoxemia; E55.9 Vitamin D deficiency, unspecified